=== PATIENT | male | born 2000 | race Caucasian/White ===

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

== ENCOUNTER → 2021-09-25 | Outpatient (CLI) | payer OTHER ==
--- NOTE | 2021-09-25 14:23 | XR ---
EXAMINATION TYPE: XR KUB DATE OF EXAM: 09/25/2021 2:10 PM CLINICAL HISTORY: Abdominal pain and constipation TECHNIQUE: 3 supine KUB images of the abdomen are obtained. COMPARISON: None. FINDINGS: Suboptimal due to large body habitus. Some gas seen in scattered nondistended small bowel l oops. Gas and fecal material seen in nondistended colon. Slightly prominent gas-filled colonic loop m id abdomen suspect redundant sigmoid colon. Lung bases are not included. Visualized osseous structure s are intact. IMPRESSION: Overall nonspecific strongly favor nonobstructive bowel gas pattern.
[2021-09-26 00:01] LABS: Folate, Serum 13.9 ng/mL (4.40-31.00)
[2021-09-26 00:21] LABS: African American GFR (CKD) 149.8 (60.0-200.0); Albumin 4.8 g/dL (3.8-4.9); Albumin/Globulin Ratio 1.95 (1.60-3.17); Anion Gap 15.1 mmol/L (10.00-18.00); BUN/Creat Ratio 11.11 Ratio (12.00-20.00); Blood Urea Nitrogen 8.8 mg/dL (9.0-27.0); Calcium 9.4 mg/dL (8.7-10.3); Globulin 2.5 g/dL (1.6-3.3); Non-African American GFR(CKD) 129.3 (60.0-200.0); Potassium 4.3 mmol/L (3.5-5.5); Total Bilirubin 0.8 mg/dL (0.30-1.20); Total Protein 7.2 g/dL (6.2-8.2)
[2021-09-26 00:56] LABS: Basophils # (A) 0.05 X 10*3/uL (0.00-0.10); Basophils % (A) 0.6 %; Eosinophils % (A) 1.1 %; HCT 49.9 % (39.6-50.0); HGB 16.2 g/dL (13.0-17.0); Immature Grans, Automated 0.2 %; Lymphocytes # (A) 3.07 X 10*3/uL (0.90-5.00); Lymphocytes % (A) 33.9 %; MCH 28.2 pg (27.0-32.0); MCHC 32.5 g/dL (32.0-37.0); MCV 86.8 fL (80.0-97.0); Monocytes % (A) 8.8 %; NRBC Per 100 WBC 0 /100 WBCS (0.0-0.0); Neutrophils # (A) 5.01 X 10*3/uL (1.80-7.70); Neutrophils % (A) 55.4 %; Platelet Count 288 X 10*3/uL (140-440); RBC 5.75 X 10*6/uL (4.40-5.60); WBC 9.05 X 10*3/uL (4.50-10.00)
[2021-09-26 01:19] LABS: Appearance,Urine Clear (Clear); Bilirubin,Urine Negative (Negative); Blood,Urine Negative (Negative); Color,Urine Yellow (Yellow); Ketones,Urine Negative (Negative); Leukocyte Esterase,Urine Negative (Negative); Nitrite,Urine Negative (Negative); PH, Urine 5.5 (5.0-8.0); Protein,Urine Negative (Negative); Specific Gravity,Urine 1.012 (1.001-1.030); Urobilinogen,Urine 0.2 (0.2,1.0)
== END | disposition home or self-care (01) ==
LOC: LABWHC1 13:53
PROVIDERS: ATTEND Family Medicine
DX: Z00.00 Encounter for general adult medical examination without abnormal findings (principal); K59.09 Other constipation; F84.0 Autistic disorder
CPT/HCPCS: 36415; 74018; 80053; 81003; 82306; 82607; 82746; 84443; 85025